=== PATIENT | female | born 1940 | race Asian ===

== ENCOUNTER → 2024-08-26 | Outpatient (CLI) | payer MEDICARE, MEDICAID, SELFPAY ==
[2024-08-26 10:07] LABS: Basophils % (Auto) 1 % (0-2.5); Eosinophils # (Auto) 0.1 Thou/mm3 (0.0-0.5); Eosinophils % (Auto) 2 % (0-10); Hematocrit 41.1 % (36.0-46.0); Hemoglobin 13.5 g/dL (12.0-16.0); Immature Granulocytes % (Auto) 0 % (0-0); Immature Granulocytes Auto 0.01 Thou/mm3 (0.00-0.00); Lymphocytes % (Auto) 51 % (10-50); Mean Corpuscular HGB Conc 32.8 g/dl (31.0-37.0); Mean Corpuscular Hemoglobin 29.4 pg (25.0-35.0); Mean Corpuscular Volume 90 fL (80-100); Monocytes # (Auto) 0.3 Thou/mm3 (0.0-0.8); Monocytes % (Auto) 8 % (0-12); Neutrophils # (Auto) 1.5 Thou/mm3 (1.8-7.7); Neutrophils % (Auto) 38 % (37-80); Nucleated Red Blood Cell % 0 /100 WBC (0); Platelet Count 222 Thou/mm3 (140-440); RDW Standard Deviation 44.5 fL (36.4-46.3); Red Blood Count 4.59 Miln/mm3 (4.00-5.20); White Blood Count 3.9 Thou/mm3 (3.6-11.0)
[2024-08-26 10:13] LABS: Collection Type, Urine Clean Catch
[2024-08-26 11:01] LABS: Bilirubin,Urine Negative (Negative); Blood,Urine Trace (Negative); Clarity,Urine Clear (Clear/Hazy); Color,Urine Yellow (Lt Yel-Yel); Culture Indicated,Urine Not Indicated; Glucose, Urine Negative (Negative); Ketones,Urine Negative (Negative); Leukocyte Esterase,Urine Negative (Negative); Nitrite,Urine Negative (Negative); PH,Urine 6.5 (5.0-7.0); Protein,Urine 1+ (Neg - Trace); RBC,Urine 3 /hpf (0-3); Specific Gravity,Urine 1.024 (1.001-1.035); Squamous Epithelial Cell,Urine < 1 /hpf (0-5); Urobilinogen,Urine Negative mg/dL (0.0-1.0); WBC,Urine 1 /hpf (0-5)
[2024-08-26 11:46] LABS: Alanine Aminotransferase 10 U/L (10-49); Albumin, Serum 4.6 gm/dL (3.4-4.8); Albumin/Globulin Ratio 1.6 (1.2-2.2); Alkaline Phosphatase 73 U/L (46-116); Anion Gap 8 (7-16); Aspartate Amino Transferase 21 U/L (0-34); BUN/Creatinine Ratio 19 Ratio (12-20); Bilirubin,Total 0.7 mg/dL (0.3-1.2); Blood Urea Nitrogen 13 mg/dL (9-23); Calcium 9.4 mg/dL (8.3-10.6); Calcium (Corrected) 9.4 mg/dL (8.5-10.1); Carbon Dioxide 31.1 mMol/L (20.0-31.0); Cardiac Risk Estimate 2.8 RATIO (3.7-5.6); Chloride 103 mMol/L (98-107); Cholesterol 216 mg/dL (132-200); Creatinine (Component) 0.7 mg/dL (0.6-1.3); Free T4 (Free Thyroxine) 1.26 ng/dL (0.89-1.76); Globulin 2.8 gm/dL (2.3-3.5); Glucose 92 mg/dL (74-106); HDL Cholesterol 76 mg/dL (40-60); LDL Cholesterol,Calculated 126 mg/dL (0-130); Osmolality,Calculated 283 (275-295); Potassium 4.2 mMol/L (3.4-5.1); Sodium 142 mMol/L (136-145); Thyroid Stimulating Hormone 8.13 uIU/mL (0.55-4.78); Total Protein 7.4 gm/dL (5.7-8.2); Triglycerides 69 mg/dL (30-150); eGFR > 60 See Note
== END | disposition home or self-care (01) ==
LOC: COPL 08:56
PROVIDERS: PCP Internal Medicine; Referring Provider Internal Medicine; Visit Provider Internal Medicine
DX: I10 Essential (primary) hypertension (principal)
CPT/HCPCS: 36415; 80053; 80061; 81001; 84439; 84443; 85025

== ENCOUNTER → 2024-08-29 | Outpatient (CLI) | payer MEDICARE, MEDICAID, SELFPAY ==
[2024-08-29 10:39] LABS: OBS Card Expiration Date 2026/09; OBS Card Lot # 23001; OBS Performed By LAB; OBS QC OK? Yes
[2024-08-29 13:52] LABS: Occult Blood, Stool Negative (Negative); Occult Blood, Stool #2 Negative (Negative); Occult Blood, Stool #3 Negative (Negative)
[2024-08-29 13:53] LABS: OBS Developer Expiration Date 2026-09; OBS Developer Lot # 23003
== END | disposition home or self-care (01) ==
LOC: SLDO 10:11
PROVIDERS: PCP Internal Medicine; Referring Provider Internal Medicine; Visit Provider Internal Medicine
DX: I10 Essential (primary) hypertension (principal)
CPT/HCPCS: 82270

== ENCOUNTER 2024-09-03 22:49 | Emergency (ER) | payer MEDICARE, MEDICAID, SELFPAY ==
[2024-09-03 22:53] VITALS: BP 154/77; PULSE 73; RESP 18; TEMP 36.7; O2SAT 92
[2024-09-03 23:00] VITALS: PULSE 68; O2SAT 97
--- NOTE | 2024-09-03 23:20 | PC.NURSE ---
PT WAS AT HER PCP THIS MORNING FOR LEFT SIDE HIP/FLANK AREAX 5 DAYS. PCP GAVE A SHOT FOR PAIN AT 0900. IN THE EVENING SHE STARTED HAVING SOB 2000. FAMILY DENIES COUGH AND FEVER.
--- NOTE | 2024-09-03 23:44 | XR_ITS ---
Examination: CT lumbar spine, without contrast. 2-D sagittal reconstructions. 2-D coronal reconstructions. 3-D reconstructions. Date and time of exam:September 04, 2024 at 0007 hours Comparison May 29, 2022 INDICATIONS: Low back pain radiating to left leg today CTDI: vol (mGy):12.9 DLP: (mGycm):452 Technique: Multiple 1.25 mm axial sections of the lumbar spine without intravenous contrast have been obtained. 2-D sagittal and coronal reconstructions have been obtained. 3-D reconstructions have been obtained. Low dose protocols were performed. One or more of the following dose reduction techniques were used; automated exposure control, adjustment of the mA and/or KV according to patient size, use of iterative reconstruction technique. Findings: Parenchymal disease at the lung bases Severe lower thoracic levoscoliosis Prominent osteopenia Chronic wedging T12 and T11 L5-S1 2 mm central lumbar disc bulge extending to the right foraminal region with mild right L5 ganglionic compression L4-L5 moderate overall spinal stenosis, 5 mm central lumbar disc bulge, facet arthropathy and thickening of ligamentum flavum with moderate left L4 ganglionic compression L3-L4 moderate overall spinal stenosis, 4 mm central lumbar disc bulge extending to the foraminal regions with mild left and severe right L3 ganglionic impression L2-L3 no disc protrusion L1-L2 no disc protrusion 2 mm upper pole right renal calculus IMPRESSION: L5-S1 2 mm central lumbar disc bulge extending to the right foraminal region with mild right L5 ganglionic compression L4-L5, L3-L4 moderate overall spinal stenosis as above MRI lumbar spine without contrast follow up would be preferable in assessing full extent of acquired spinal stenosis 2 mm nonobstructing right renal calculus
--- NOTE | 2024-09-03 23:46 | PD.EDBACK ---
ED Back Injury Pain RME/HPI General Chief Complaint: Back Pain/Injury Stated Complaint: back pain Time Seen by Provider: 09/03/24 23:30 Arrival date/time: 09/03/24 22:49 RME / HPI RME / HPI Narrative: Patient is a 83-year-old [place]loc[place]-speaking female with past medical history of hypertension, hypothyroidism, and hyperlipidemia who presents for left-sided sharp low back pain shooting down the left leg, starting approximately 8:00 pm after she got up from the toilet at home. Afterward, she was unable to stand or walk due to the severe pain. Pain is described as pulsating and exacerbated by movement. Family was unable to load her into the car due to the pain and thus called EMS. Patient has been having left-sided low back pain for the last 5 days and this morning the patient got a pain shot from her PCP. She has also been trying Tylenol without relief. Patient denies any prior history of back pain issues. Patient denies cough, fever, chills, chest pain, shortness of breath, nausea, vomiting, diarrhea, abdominal pain, dysuria, bowel or bladder incontinence. MD Complaint: back pain Onset (ago): hour(s) Duration: intermittent Similar Symptoms Previously: No Location: lumbar spine and left flank Severity: severe Quality: sharp, stabbing and tingling Radiation: left leg Relieving factors: immobilization Exacerbating factors: movement, sitting upright and walking Context: other (getting up from seated position) Associated symptoms: denies other symptoms and numbness Treatments prior to arrival: acetaminophen and other medications ( pain shot per PCP) Related Data Home Medications ?Medication ?Instructions ?Recorded ?Confirmed levothyroxine 100 mcg tablet 100 mcg PO DAILY ##0 10/03/07 03/20/23 (Synthroid) amlodipine 10 mg tablet (Norvasc) 1 tab PO DAILY 05/24/18 03/20/23 rosuvastatin 5 mg tablet 5 mg PO HS 03/20/23 03/20/23 tizanidine 2 mg tablet 2 mg PO QDAY 03/20/23 03/20/23 Held on 03/20/23. Instructions: Resume on 03/21/23. Previous Rx's ?Medication ?Instructions ?Recorded acetaminophen 500 mg tablet 500 mg PO Q12H PRN pain 7 days #14 09/04/24 (Acetaminophen Extra Strength) tabs celecoxib 200 mg capsule 200 mg PO Q12H PRN back pain 7 09/04/24 days #14 caps pantoprazole 40 mg tablet,delayed 40 mg PO QDAY ulcer protection 7 09/04/24 release days #7 tabs Allergies Allergy/AdvReac Type Severity Reaction Status Date / Time No Known Allergies Allergy Verified 03/20/23 12:42 Past Medical History Past Medical History Comments PMH COMMENT: Past Medical History: Hypertension, hypothyroidism, and hyperlipidemia Family History: Notable for hypertension, stroke in mother Surgical History: Thyroidectomy, left knee surgery, appendectomy, proximal esophageal stricture s/p dilation Social History: Denies history of smoking, denies current alcohol use, denies recreational drug use Current Medications: Levothyroxine 75 mcg qday, amlodipine 5 mg qday, rosuvastatin 5 mg qday, Tylenol as needed (Source: Patient medication bottles) Allergies: No known drug allergies ED Exam Narrative Physical exam: Physical Exam General: Awake and in no acute distress. Conversational and non-toxic appearing elderly female appears stated age. HEENT: Normocephalic, atraumatic, mucous membranes moist. Heart: Regular rate and rhythm, no murmurs. Lungs: Clear to auscultation with no wheezing or crackles. Abdomen: Soft, nondistended, nontender, positive bowel sounds. ?No guarding or rebound tenderness. Neurologic: Alert and oriented x3, no gross neurological deficit, and patient able to move all 4 extremities. Left straight leg test raise positive. Negative right straight leg test. Sensations intact however reports feels more parasthesia in the left lower extremity. Per RN patient was able to get up to the restroom with assistance. Extremities: No peripheral edema. Skin: No rash or ecchymoses. Course Quality Measures none Orders Category Date Time Status CT lumbar spine wo con Stat Exams 09/03/24 23:44 Taken CBC Stat Lab 09/03/24 23:50 Completed CMP [Comprehensive Metabolic Panel] Stat Lab 09/03/24 23:50 Completed HYDROcodone*/APAP 5/325 [[place] 5/325] Med 09/04/24 00:21 Discontinued 1 tab PO X1 ONE Ketorolac Inj [Toradol Inj] Med 09/04/24 02:32 Discontinued 30 mg IVP X1 ONE Vital Signs Vital signs: Vital Signs Temperature 98.1 F 09/03/24 22:53 Pulse Rate 73 09/03/24 22:53 Respiratory Rate 18 09/03/24 22:53 Blood Pressure 154/77 H 09/03/24 22:53 Pulse Oximetry (%) 92 L 09/03/24 22:53 Oxygen Delivery Method Room Air 09/03/24 22:53 Back Pain / Injury Patient data External records reviewed:: [facility] [place] previous records Clinical information provided by:: patient and family Social determinants that could affect healthcare access:: none Patient has the following chronic illnesses:: Hypertension, hypothyroidism, and hyperlipidemia How is presenting disease/condition affected by chronic disease/condition?: uneffected by Evaluation data The following diagnostics were reviewed and interpreted by me:: lab results and radiology exam(s) Lab and/or radiology exams considered but not ordered:: Urinalysis Interpretation Summary: CT lumbar spine without contrast ordered to evaluate etiology of back pain. My read shows no acute compression of nerve roots, scoliosis. Pending [facility] report. [facility]: CT scan of the lumbar spine without intravenous contrast (axial sections with sagittal and coronal reformats) September 04, 2024 at 0005 hours Clinical History: Shooting low back pain to left leg starting. Comparison: None available at the time of this report. Findings: No acute fractures. Osteopenia. Right complex thoracolumbar scoliosis centered at the L1. Vascular calcifications. Chronic multilevel posterior disc bulging without evidence of spinal canal stenosis. Moderate right neuroforaminal narrowing at the L2-L3. Moderate right neuroforaminal narrowing at the L3-L4. Mild right neuroforaminal narrowing at the L4-L5. Impression: 1. Moderate right neuroforaminal narrowing at the L2-L3. 2. Moderate right neuroforaminal narrowing at the L3-L4. 3. Mild right neuroforaminal narrowing at the L4-L5. 4. Right thoracolumbar scoliosis. 5. Osteopenia. Consider correlation with DEXA scan. Medications / Prescriptions Medications or Prescriptions considered but not ordered:: None Medication administrations:: Medication Administration History Discontinued Medications Hydrocodone Bitart/Acetaminophen (Hydrocodone/Apap 5/325 Tablet) 1 tab PO X1 ONE Stop: 09/04/24 00:22 Last Admin: 09/04/24 00:24 Dose: 1 tab Documented By: BRANDY Ketorolac Tromethamine (Ketorolac Inj 30 Mg/Ml Vial) 30 mg IVP X1 ONE Stop: 09/04/24 02:33 . Consultations Consultation(s) initiated? (list below): No Diagnosis Most likely diagnosis given after review of the tests above:: Lumbar radiculopathy and sciatica Admission Indicated Admission indicated?: not indicated Admission Request Was there a request for admission?: No Disposition Plan Disposition Plan: Discharge Discharge Attestation Discharge Attestation: The patient and all family members were given an opportunity to ask questions and understood the discharge instructions. Discharge instructions specifically effects, indications for sooner follow up or return to the emergency department, and the expected course of current diagnosis. Patient condition: Stable Discharge Plan Plan Patient Disposition: HOME (Self Care) Patient condition on transfer: Stable Prescriptions/Referrals Prescriptions/Med Rec: New celecoxib 200 mg capsule 200 mg PO Q12H PRN (Reason: back pain) 7 Days Qty: 14 0RF acetaminophen [Acetaminophen Extra Strength] 500 mg tablet 500 mg PO Q12H PRN (Reason: pain) 7 Days Qty: 14 0RF pantoprazole 40 mg tablet,delayed release (DR/EC) 40 mg PO QDAY 7 Days Qty: 7 0RF No Action levothyroxine [Synthroid] 100 MCG tablet 100 mcg PO DAILY Qty: 0 amlodipine [Norvasc] 10 mg Tablet 1 tab PO DAILY tizanidine 2 mg tablet 2 mg PO QDAY rosuvastatin 5 mg tablet 5 mg PO HS Problem List Clinical Impression: Lumbar radiculopathy, Strain of lumbar region, Sciatica Patient/Caregiver Discharge Instructions Education Materials: Understanding Lumbar Radiculopathy, Understanding Lumbosacral Strain, Sciatica Additional Instructions: You were prescribed 3 new medications: -Celecoxib 200 mg - Take 1 tablet every 12 hours, with food -Acetaminophen 500 mg - Take 1 tablet every 12 hours -Pantoprazole 40 mg - Take 1 tablet every day while you are taking the above medications Celecoxib is a medication called an NSAID. This medication can cause risk of stomach ulcers if taken for a long period of time, so you need to take it with food. We have also prescribed you pantoprazole which protects the stomach from ulcers during the time you are taking the medicine. You can alternate between celecoxib and acetaminophen. For example, take celecoxib with food at breakfast at 8 am. Then take acetaminophen at 2 pm. Then you can take celecoxib again at 8 pm with food. Please return to the ED if you have any new weakness, loss of control for urinating or bowel movements, or worsening pain. Print Language: Maori Stand Alone Forms: Beckie Award Info., Patient Portal Info Letter Attestation Attestation I was present for the pertinent history and physical findings, discussion of the management of this patient, review of her radiographs, reviewed the note and agree.
[2024-09-04] MEDS: HYDROcodone/APAP 5/325 TABLET 1 TAB PO (00:24)
[2024-09-04 00:44] LABS: Basophils % (Auto) 1 % (0-2.5); Eosinophils # (Auto) 0.1 Thou/mm3 (0.0-0.5); Eosinophils % (Auto) 1 % (0-10); Hematocrit 38.9 % (36.0-46.0); Hemoglobin 12.9 g/dL (12.0-16.0); Immature Granulocytes % (Auto) 0 % (0-0); Immature Granulocytes Auto 0.01 Thou/mm3 (0.00-0.00); Lymphocytes # (Auto) 2.2 Thou/mm3 (1.0-4.8); Lymphocytes % (Auto) 46 % (10-50); Mean Corpuscular HGB Conc 33.2 g/dl (31.0-37.0); Mean Corpuscular Hemoglobin 29.1 pg (25.0-35.0); Mean Corpuscular Volume 88 fL (80-100); Monocytes # (Auto) 0.4 Thou/mm3 (0.0-0.8); Monocytes % (Auto) 8 % (0-12); Neutrophils # (Auto) 2.1 Thou/mm3 (1.8-7.7); Neutrophils % (Auto) 44 % (37-80); Nucleated Red Blood Cell % 0 /100 WBC (0); Platelet Count 174 Thou/mm3 (140-440); RDW Standard Deviation 43.9 fL (36.4-46.3); Red Blood Count 4.43 Miln/mm3 (4.00-5.20); White Blood Count 4.9 Thou/mm3 (3.6-11.0)
--- NOTE | 2024-09-04 01:01 | PRELIM_ITS ---
CT scan of the lumbar spine without intravenous contrast (axial sections with sagittal and coronal reformats) September 04, 2024 at 0005 hours Clinical History: Shooting low back pain to left leg starting. Comparison: None available at the time of this report. Findings: No acute fractures. Osteopenia. Right complex thoracolumbar scoliosis centered at the L1. Vascular calcifications. Chronic multilevel posterior disc bulging without evidence of spinal canal stenosis. Moderate right neuroforaminal narrowing at the L2-L3. Moderate right neuroforaminal narrowing at the L3-L4. Mild right neuroforaminal narrowing at the L4-L5. Impression: 1. Moderate right neuroforaminal narrowing at the L2-L3. 2. Moderate right neuroforaminal narrowing at the L3-L4. 3. Mild right neuroforaminal narrowing at the L4-L5. 4. Right thoracolumbar scoliosis. 5. Osteopenia. Consider correlation with DEXA scan. Report Electronically Signed By: Toney Torres 09/04/2024 1:00:56 AM [EST]
[2024-09-04 01:02] LABS: Alanine Aminotransferase 15 U/L (10-49); Albumin, Serum 4.6 gm/dL (3.4-4.8); Albumin/Globulin Ratio 1.5 (1.2-2.2); Alkaline Phosphatase 70 U/L (46-116); Anion Gap 8 (7-16); Aspartate Amino Transferase 35 U/L (0-34); BUN/Creatinine Ratio 16 Ratio (12-20); Bilirubin,Total 0.5 mg/dL (0.3-1.2); Blood Urea Nitrogen 11 mg/dL (9-23); Calcium 9.4 mg/dL (8.3-10.6); Calcium (Corrected) 9.4 mg/dL (8.5-10.1); Carbon Dioxide 28.6 mMol/L (20.0-31.0); Chloride 104 mMol/L (98-107); Creatinine (Component) 0.7 mg/dL (0.6-1.3); Globulin 3.1 gm/dL (2.3-3.5); Glucose 122 mg/dL (74-106); Osmolality,Calculated 281 (275-295); Potassium 3.8 mMol/L (3.4-5.1); Sodium 141 mMol/L (136-145); Total Protein 7.7 gm/dL (5.7-8.2); eGFR > 60 See Note
[2024-09-04] MEDS: KETOROLAC INJ 60 MG/2 ML VIAL 30 MG IM (02:56)
[2024-09-04 03:01] VITALS: BP 167/77; PULSE 61; RESP 16; O2SAT 95
== END 2024-09-04 03:08 | disposition home or self-care (01) ==
LOC: SERX 09-04 03:17
PROVIDERS: Emergency Provider Student in an Organized Health Care Education/Training Program; PCP Internal Medicine
DX: S39.012A Strain of muscle, fascia and tendon of lower back, initial encounter (principal); M54.16 Radiculopathy, lumbar region; I10 Essential (primary) hypertension; E03.9 Hypothyroidism, unspecified; E78.5 Hyperlipidemia, unspecified
CPT/HCPCS: 36415; 72131; 80053; 85025; 96372; 99284; J1885; A9270